=== PATIENT | male | born 1955 | race Caucasian/White ===

== ENCOUNTER 2021-12-13 20:35 | Inpatient (IN) | payer OTHER, MEDICARE, SELFPAY ==
[~2021-12-13] VITALS: Ht 160 cm; Wt 59.0 kg
[2021-12-13] MEDS: NACL 0.9% 1,000 ML IV SCH (01:13)
[2021-12-13 20:37] VITALS: BP 191/97
--- NOTE | 2021-12-13 20:42 | NUR ---
PT OFFLOADED TO [facility]
[2021-12-13] MEDS ORDERED: ACETAMINOPHEN EXTRA STRENGTH 500 MG TAB PO ONE (22:35)
[2021-12-13] MEDS ORDERED: MORPHINE SULFATE 4 MG/ML SYR IVP ONE (23:10)
[2021-12-13] MEDS ORDERED: NACL 0.9% 1,000 ML IV ONE (23:10)
[2021-12-13] MEDS ORDERED: ONDANSETRON 4 MG/2 ML VIAL IVP ONE (23:10)
--- NOTE | 2021-12-13 23:30 | NUR ---
SISTER MICHELE FORD CALLED REQUESTING UPDATE
[2021-12-13] MEDS ORDERED: ACETAMINOPHEN 325 MG TAB PO PRN (23:40)
[2021-12-13] MEDS ORDERED: MORPHINE SULFATE 4 MG/ML SYR IVP PRN (23:40)
[2021-12-13] MEDS ORDERED: ONDANSETRON 4 MG/2 ML VIAL IVP PRN (23:40)
[2021-12-14] MEDS ORDERED: ONDANSETRON 4 MG/2 ML VIAL ONE (00:29)
[2021-12-14] MEDS ORDERED: MORPHINE SULFATE 4 MG/ML SYR ONE (00:30)
[2021-12-14 00:48] LABS: BASOPHILS % (AUTO) 0.2 % (0.0-2.0); HEMATOCRIT 35.6 % (36-52); HEMOGLOBIN 12.1 g/dL (12.0-18.0); LYMPHOCYTES # (AUTO) 0.9 K/uL (2.0-11.5); LYMPHOCYTES % (AUTO) 11.9 % (20.5-51.1); MEAN CORPUSCULAR HEMOGLOBIN 34 pg (27-31); MEAN CORPUSCULAR HGB CONC 34 g/dL (33-37); MEAN CORPUSCULAR VOLUME 100.9 fL (80-94); MONOCYTES # (AUTO) 0.2 K/uL (0.8-1.0); MONOCYTES % (AUTO) 3.2 % (1.7-9.3); NEUTROPHILS # (AUTO) 6.4 K/uL (1.8-7.7); NEUTROPHILS % (AUTO) 84.7 % (42.2-75.2); PLATELET COUNT (AUTO) 171 K/uL (140-450); RED BLOOD CELL COUNT(AUTO) 3.53 MIL/uL (4.20-6.10); RED CELL DISTRIBUTION WIDTH 13.3 % (11.6-13.7); WHITE BLOOD COUNT (AUTO) 7.6 K/uL (4.8-10.8)
[2021-12-14] MEDS ORDERED: diphenhydrAMINE 50 MG/ML VIAL IVP ONE (01:00)
[2021-12-14 01:25] LABS: ANION GAP 16.5 (8-16); CARBON DIOXIDE 23.9 mmol/L (21-32); POTASSIUM 4.4 mmol/L (3.5-5.1)
--- NOTE | 2021-12-14 02:00 | NUR ---
PT MOVED TO BED #8
[2021-12-14 02:09] LABS: PROTHROMBIN TIME 10.4 secs (10.8-13.4)
--- NOTE | 2021-12-14 02:48 | NUR ---
PT LAYING SUPINE IN BED LOCKED IN LOWEST POSITION W X2 SIDERAILS UP FOR PT SAFETY. PT VOIDED 800 CC OF CLEAR YEALLOW URINE TO URINAL. NS RUNNING ORDERED. PT C/O ONGOING R LEG PAIN. +SENSATION TO R LEG, CAP REFILL <3 SEC, LIMITED ROM D/T PAIN. PROVIDED PT W BLANKET. PT CONNECTED TO MONITOR W VSS. BREATHING EVEN AND UNLABORED. NAD NOTED, WILL CONTINUE TO MONITOR.
[2021-12-14] MEDS: HYDROcodone/APAP 5/325 MG 1 TAB TAB PO PRN ×4 (03:59→22:09)
--- NOTE | 2021-12-14 04:39 | NUR ---
PT UNSURE WHAT HIS HOME MEDS ARE. PT WILL CONTACT CAREGIVER TO PROVIDE HOME MED LIST.
--- NOTE | 2021-12-14 05:12 | NUR ---
PT APPEARS TO BE RESTING W EYES CLOSED IN SUPINE POSITION. BREATHING EVEN AND UNLBOARED. MARCIA LOCKED IN LOWEST POSITON W X2 SIDERAILS UP FOR PT SAFETY. TACHY AT 108 BUT OTHERWISE VSS. NAD NOTED, WILL CONTINUE TO MONITOR.
--- NOTE | 2021-12-14 07:21 | NUR ---
Pt report given to GINETTE COLLINS. Transfer of care at this time.
[2021-12-14] MEDS ORDERED: EMTR1TAB16 PO (07:31)
[2021-12-14] MEDS ORDERED: FLUC200T6 PO (07:31)
[2021-12-14] MEDS ORDERED: ASPI-1749 PO (07:31)
[2021-12-14] MEDS ORDERED: LEVO25CA2 PO (07:31)
[2021-12-14] MEDS ORDERED: ALEN70TA85 PO (07:45)
[2021-12-14] MEDS ORDERED: DOLU50TA PO (07:45)
[2021-12-14] MEDS ORDERED: MULT-2112 PO (07:45)
[2021-12-14] MEDS ORDERED: [UNRECOGNIZED DRUG - CODE] PO (07:45)
[2021-12-14] MEDS ORDERED: METH-1625 PO (07:45)
--- NOTE | 2021-12-14 07:45 | NUR ---
MED REC PROVIDED BY JOHN BYERS VIA PT TELOPHONE CALL.
[2021-12-14 08:18] LABS: CREATININE 0.9 mg/dL (0.6-1.3); POTASSIUM 4.5 mmol/L (3.5-5.1)
[2021-12-14 08:34] LABS: BASOPHILS % (AUTO) 0.1 % (0.0-2.0); HEMOGLOBIN 11.2 g/dL (12.0-18.0); LYMPHOCYTES # (AUTO) 2.4 K/uL (2.0-11.5); LYMPHOCYTES % (AUTO) 31.4 % (20.5-51.1); MEAN CORPUSCULAR HEMOGLOBIN 35 pg (27-31); MEAN CORPUSCULAR HGB CONC 34 g/dL (33-37); MEAN CORPUSCULAR VOLUME 101.4 fL (80-94); MONOCYTES # (AUTO) 0.9 K/uL (0.8-1.0); NEUTROPHILS # (AUTO) 4.3 K/uL (1.8-7.7); NEUTROPHILS % (AUTO) 56.5 % (42.2-75.2); PLATELET COUNT (AUTO) 133 K/uL (140-450); RED BLOOD CELL COUNT(AUTO) 3.25 MIL/uL (4.20-6.10); RED CELL DISTRIBUTION WIDTH 13.2 % (11.6-13.7); WHITE BLOOD COUNT (AUTO) 7.6 K/uL (4.8-10.8)
[2021-12-14] MEDS ORDERED: ENOXAPARIN 40 MG/0.4 ML SYR SUBQ SCH (09:00)
--- NOTE | 2021-12-14 09:13 | NUR ---
PT COMPLAINED OF PAIN 9/10 ON RIGHT LEG. PT REFUSED MORPHINE- STATED HE HAS WITH MEDICATION.
[2021-12-14 11:59] LABS: ANION GAP 17.8 (8-16); CARBON DIOXIDE 19.7 mmol/L (21-32)
--- NOTE | 2021-12-14 12:26 | NUR ---
CALLED [facility] [phone]. SPOKE TO RAFI WAGNER.
[2021-12-14] MEDS: NACL 0.9% 1,000 ML IV SCH (13:15)
[2021-12-14] MEDS: METHADONE 10 MG TAB PO SCH (13:15)
--- NOTE | 2021-12-14 13:35 | NUR ---
PATIENT HAS BEEN SCREENED AND CATEGORIZED LOW NUTRITION RISK. PATIENT WILL BE SEEN WITHIN 7 DAYS OF ADMISSION. 12/20/[address]
--- NOTE | 2021-12-14 19:20 | NUR ---
REPORT GIVEN TO GINETTE HATHAWAY. ALL CARES TRANSFERRED AT THIS TIME.
--- NOTE | 2021-12-14 23:29 | NUR ---
MS bed dropped, pt going to 106A, report given to Eric PENG.
[2021-12-15] VITALS: BP 163/76
[2021-12-15] MEDS: HYDROcodone/APAP 5/325 MG 1 TAB TAB PO PRN ×2 (02:14→11:27)
[2021-12-15] MEDS: NACL 0.9% 1,000 ML IV SCH ×2 (02:20→16:29)
--- NOTE | 2021-12-15 03:31 | NUR ---
Pt's sister, Daysi ([phone]) called and informed creative writer that pt's outside PCP is Dr. Perry Esquivel. Pt and Pt's sister asked that PCP and Consulting Ortho MD consult w Dr Esquivel ([phone]) re: Extent of injury, Plan of Care/Treatment Plan and possibility of postponing surgery so that pt can transfer to [facility]. Pt and sister ask that surgery and recovery be at [facility]. Dr. Perry Esquivel's (pt's outside MD): [phone] Daysi (pt's sister): [phone]
--- NOTE | 2021-12-15 07:30 | NUR ---
RECEIVED REPORT FROM INVENTORY CONTROL/SHIPPING RECEIVING NURSE. PT AOX4 ABLE TOMAKE NEEDS KNOWN VERBALLY, WITH C/O RLE PAIN 07/30, WILL MEDICATE, NO SOB ON ROOM AIR. ADMITTED WITH A CC OF FALL, ADMITTING DX OF FRACTURE OF RIGHT TIBIA AND FIBULA, HX OF HTN, HIV. SURGICAL HX OF L CLAVICLE AND L HIP ORIF. WITH SAUNDRA 18G RUNNING IVF ORDERED. PT BOWEL AND BLADDER CONTINENT, ABLE TO USE URINAL. RLE SKIN IS INTACT, WITH REDNESS, SWELLING AND TENDERNESS. PT IS NPO D/T ANTICIPATED SURGERY. STANDARD ISO. FALL RISK PRECAUTION. DISCUSSED POC
[2021-12-15 08:00] VITALS: BP 171/73
[2021-12-15] MEDS: METHADONE 10 MG TAB PO SCH (08:35)
--- NOTE | 2021-12-15 09:00 | NUR ---
DUE MEDS GIVEN.
[2021-12-15] MEDS: HYDROcodone/APAP 10/325 MG 1 TAB TAB PO PRN (14:00)
--- NOTE | 2021-12-15 15:30 | NUR ---
RECEIVED REPORT FROM GINETTE ANGULO FOR CONTINUITY OF CARE. PT IS STABLE NO DISTRESS NOTED. PLAN OF CARE DISCUSSED. WILL CONTINUE TO MONITOR.
[2021-12-15 16:00] VITALS: BP 150/56
--- NOTE | 2021-12-15 16:37 | NUR ---
PT WAS ASSESSED BY DR. MONTEIRO AND CAST WAS PLACED ON LOWER EXTREMITY RIGHT FRACTURE. PT STATED THE PAIN TOLERABLE.
--- NOTE | 2021-12-15 17:51 | NUR ---
PT WAS GIVEN URINAL TO VOID AT BEDSIDE. PT IS ON BEDREST WITH CAST ON THE RIGHT LEG. PT DENIES PAIN AT THIS TIME. NO DISTRESS NOTED. ON RA WITH BREATHING UNLABORED. AWAKE AND ALERT, ANSWERING QUESTIONS APPROPRIATELY.
--- NOTE | 2021-12-15 18:52 | NUR ---
PT WAS STABLE THROUGHOUT SHIFT. NO DISTRESS NOTED AT THIS TIME. WILL ENDORSE TO TRAILER ASSEMBLER NURSE FOR CONTINUITY OF CARE AND DISCUSS PLAN OF CARE.
--- NOTE | 2021-12-15 19:25 | NUR ---
RECEIVED PT AAOX4 , W/ R LEG CAST , NO C/O PAIN AT THIS TIME , O2 SAT WNL , IV SITE INTACT AND PATENT . EXPLAIN THE POC CARE , CALL LIGHT WITHIN REACH . WILL CONT. TO MONITOR .
[2021-12-16] VITALS: BP 148/82
--- NOTE | 2021-12-16 02:00 | NUR ---
SLEEPING , CHEST RISE AND FALL EQUALLY . CALL LIGHT WITYHIN REACH .
--- NOTE | 2021-12-16 04:00 | NUR ---
ROUNDS , WATCHING TV . NO COMPLAIN MADE , CALL LIGHT WITHIN REACH .
[2021-12-16] MEDS: NACL 0.9% 1,000 ML IV SCH ×2 (04:38→18:20)
[2021-12-16] MEDS: HYDROcodone/APAP 10/325 MG 1 TAB TAB PO PRN ×2 (05:21→20:50)
--- NOTE | 2021-12-16 06:00 | NUR ---
NO COMPLAIN MADE . CALL LIGHT WITHIN REACH.
--- NOTE | 2021-12-16 07:12 | NUR ---
ENDORSED TO AM SHIFT - PT - STABLE .
--- NOTE | 2021-12-16 07:15 | NUR ---
RECEIVED PT FROM NIGHT RN, PT IS AWAKE AND IS SEATED ON THE BED WITH SIDE RAILS UP AND CALL LIGHT WITHIN REACH, PT HAS A SPLINT IN PLACE ON RLE, PT IS ON RA, IV LINE NOTED ON THE SAUNDRA G. 18 WITH NS INFUSING AT 75ML/HR, INTACT, NO SIGN OF DISTRESS NOTED AND WILL CONTINUE TO MONITOR PT.
[2021-12-16 08:00] VITALS: BP 163/68
--- NOTE | 2021-12-16 08:20 | NUR ---
PT WAS GIVEN THE SCHEDULED AM MEDICATIONS NOW, TOLERATED AND WILL CONTINUE TO BE MONITORED.
[2021-12-16] MEDS: ASPIRIN 325 MG TABEC PO SCH (08:21)
[2021-12-16] MEDS: METHADONE 10 MG TAB PO SCH (08:22)
[2021-12-16] MEDS ORDERED: ERGOCALCIFEROL 50,000 IU SGL PO SCH (09:00)
[2021-12-16 11:00] VITALS: BP 143/72
--- NOTE | 2021-12-16 15:21 | NUR ---
DC PLANNING: PATIENT S/P CLOSED REDUCTION OF TIB/FIB FX BY DR MONTEIRO, DC INSTRUCTIONS INCLUDED IN HIS NOTE. PATIENT LIVES WITH A ROOMATE WHO ACTS HIS CAREGIVER AND HAS DME OF WC, FWW, FOUR WHEEL WALKER AND BSC. ORDERS TO ARRANGE HOME HEALTH P.T., PATIENT HAS IEHP, PACKED FAXED TO [facility], PHONE NUMBER [phone], FAX [phone]. CM WILL FOLLOW. Addendum: 12/17/21 at 0850 by Nely Winslow CM Called & spoke with Radha at [facility], , pt has been accepted thru Medicare Part B, does not need IE auth. States plan to see pt tomorrow, will call pt to set up date/time.
[2021-12-16 16:00] VITALS: BP 140/57
--- NOTE | 2021-12-16 19:40 | NUR ---
ENDORSED PT TO NIGHT RN FOR CONTINUITY OF CARE.
--- NOTE | 2021-12-16 19:41 | NUR ---
RECD. RESTING IN BED, AWAKE, A/OX4. RESPIRATION EVEN AND UNLABORED. IV OF NS INFUSING AT 75 ML/HR AT THE RIGHT UPPER ARM G18. RIGHT LOWER EXTREMITY WITH DONALD WRAPPED DRESSING AND IMMOBILIZER IN PLACED. TOES PINK AND WARM TO TOUCH, CAPILLARY REFILL LESS 3 SECONDS, WITH POSITIVE MOVEMENTS. MEDICATIONS AND CARE FOR THE SHIFT DISCUSSED WITH PATIENT, VERBALIZED UNDERSTANDING. WANTS TO BE TRANSFERRED TO ANOTHER ROOM FOR MORE QUIETNESS. PAIN IN THE RLE, 11/29, INCREASES WITH MOVEMENT. WILL MEDICATE PER MD ORDER.
--- NOTE | 2021-12-16 20:00 | NUR ---
Patient's Plan of Care was discussed and reviewed with RAFI DANIELS.
--- NOTE | 2021-12-16 21:30 | NUR ---
WITH DECREASED APPETITE, ATE JUST 25% OF DINNER. ENCOURAGED TO EAT MORE.
[2021-12-17] VITALS: BP 150/72
--- NOTE | 2021-12-17 00:05 | NUR ---
SLEEPING COMFORTABLY IN BED, RESPIRATION EVEN AND UNLABORED. CALL LIGHT IN REACH.
[2021-12-17] MEDS: NACL 0.9% 1,000 ML IV SCH ×2 (00:39→07:56)
--- NOTE | 2021-12-17 02:00 | NUR ---
NO RESPIRATORY DISTRESS NOTED. COMFORTABLY ASLEEP IN BED.
--- NOTE | 2021-12-17 04:00 | NUR ---
STILL SLEEPING COMFORTABLY IN BED, APPEARANCE OF DISCOMFORT/PAIN NOTED.
--- NOTE | 2021-12-17 06:30 | NUR ---
AWAKE IN BED, TEXTING USING HIS CELLPHONE. ABLE TO SLEEP WELL.
--- NOTE | 2021-12-17 07:00 | NUR ---
RESPIRATORY STATUS REMAIN STABLE. WILL ENDORSE TO AM SHIFT NURSE FOR CONTINUITY OF CARE.
--- NOTE | 2021-12-17 07:10 | NUR ---
RECEIVED REPORT FROM COMMISSIONED SECURITY OFFICER NURSE FOR CONTINUITY OF CARE. PT IN BED AT THIS TIME RESTING. RESPIRATIONS ARE EVEN AND UNLABORED. NO SIGNS OF DISTRESS NOTED. NO COMPLAINTS OF PAIN OR DISCOMFORT AT THIS TIME. CALL LIGHT WITHIN REACH. ALL SAFETY MEASURES IN PLACE. WILL CONTINUE TO MONITOR.
[2021-12-17 08:00] VITALS: BP 154/68
--- NOTE | 2021-12-17 08:00 | NUR ---
Patient's Plan of Care was discussed and reviewed with CREATIVE SERVICES PRODUCER: ARISTEO GUILLEN
[2021-12-17] MEDS: ASPIRIN 325 MG TABEC PO SCH (08:25)
[2021-12-17] MEDS: METHADONE 10 MG TAB PO SCH (08:25)
--- NOTE | 2021-12-17 08:25 | NUR ---
ADMINISTERED ALL SCHEDULED MEDICATIONS. EDUCATED PT REGARDING MEDS ADMINISTERED. PT VERBALIZED UNDERSTANDING. WILL CONTINUE TO MONITOR.
--- NOTE | 2021-12-17 13:02 | NUR ---
DID ROUNDS ON PT. PT IN BED RESTING AT THIS TIME. RESPIRATIONS ARE EVEN AND UNLABORED. NO SIGNS OF DISTRESS NOTED. WILL CONTINUE TO MONITOR.
[2021-12-17] MEDS ORDERED: ASPI-1206 PO (14:45)
[2021-12-17] MEDS ORDERED: ERGO-30 PO (14:45)
[2021-12-17 16:00] VITALS: BP 159/76
[2021-12-17] MEDS: HYDROcodone/APAP 10/325 MG 1 TAB TAB PO PRN (16:45)
--- NOTE | 2021-12-17 16:46 | NUR ---
PT COMPLAINING OF PAIN. STATING PAIN IS 7/10. MEDICATED PER MD ORDER. WILL CONTINUE TO MONITOR.
--- NOTE | 2021-12-17 19:15 | NUR ---
WENT OVER DISCHARGE PAPERWORK WITH PT. ANSWERED ALL QUESTIONS. PT SIGNED PAPERWORK. REMOVED IV. IV CATHETER INTACT. WRIST BAND REMOVED. ALL BELONGINGS TAKEN UPON DISCHARGE.
== END 2021-12-17 19:05 | disposition home health service (06) | DRG 342 ==
LOC: MED 20:35 → MTU 23:47
PROVIDERS: ADMIT Hospitalist; ATTEND Hospitalist
PROC: 0QSJXZZ Reposition Right Fibula, External Approach (ICD-10-PCS; principal; 2021-12-15)
PROC: 0QSGXZZ Reposition Right Tibia, External Approach (ICD-10-PCS; 2021-12-15)
DX: S89.091A Other physeal fracture of upper end of right tibia, initial encounter for closed fracture (principal); F17.210 Nicotine dependence, cigarettes, uncomplicated; I10 Essential (primary) hypertension; R00.0 Tachycardia, unspecified; Z20.822 Contact with and (suspected) exposure to COVID-19; W18.39XA Other fall on same level, initial encounter; S80.221A Blister (nonthermal), right knee, initial encounter; X58.XXXA Exposure to other specified factors, initial encounter; S89.291A Other physeal fracture of upper end of right fibula, initial encounter for closed fracture; Z79.899 Other long term (current) drug therapy; Z79.82 Long term (current) use of aspirin; Y93.89 Activity, other specified; Y92.89 Other specified places as the place of occurrence of the external cause; Y99.8 Other external cause status
CPT/HCPCS: 36415; 72170; 73562; 73590; 73700; 80048; 85025; 85610; 85730; 87081; 96361; 96374; 96375; 97110; 97112; 97163-GP; 97530; 99285; J1200; J1650; J2270; J2405; Q0092